=== PATIENT | female | born 1980 | race Caucasian/White ===

== ENCOUNTER → 2016-06-19 | Outpatient (CLI) | payer OTHER ==
[~2016-06-19] MED LIST: ASPCH81X PO; BCPILLS PO; CETI10TA10 PO; ESOM20CA PO
== END | disposition home or self-care (01) ==
LOC: C.PAPS 09:47
PROVIDERS: ATTEND Obstetrics & Gynecology
DX: Z01.419 Encounter for gynecological examination (general) (routine) without abnormal findings (principal)

== ENCOUNTER 2019-03-25 05:58 | Observation (INO) ==
--- NOTE | 2019-03-18 13:40 | Anesthesiology Consultation ---
Date of Service March 18, 2019 Assessment & Plan (1) Encounter for pre-operative examination: Chart Review Chart Review: Acceptable Risk for Surgery and Patient NOT seen in Pre Admission Testing Consults Requested none History Surgery Operation Date: 03/25/19 07:30 Proposed Procedures p Bilateral Reduction Mammoplasty - Lucille Bueno MD Height/Weight Height: 5 ft 6 in Weight: 79.379 kg Allergies Allergy/AdvReac Type Severity Reaction Status Date / Time No Known Drug Allergies Allergy Unknown . Verified 03/17/19 15:41 Medications Home Medications Medication Instructions Recorded Confirmed Last Taken aspirin 81 mg tablet,delayed 81 mg PO . HOLD 12/18/18 03/17/19 Unknown release cetirizine 10 mg capsule 10 mg PO QAM 12/18/18 03/17/19 Unknown esomeprazole magnesium 20 mg 20 mg PO QAM cap 12/18/18 03/17/19 Unknown capsule,delayed release levonorgestrel 0.15 mg-ethinyl 1 tab PO .HOLD 12/18/18 03/17/19 Unknown estradiol 30 mcg tablets,3 mos pack(91) sumatriptan 100 mg tablet 100 mg PO Q2H PRN 12/18/18 03/17/19 Unknown cyclobenzaprine 5 mg tablet 5 mg PO TID PRN #20 tab 02/09/19 03/17/19 Unknown oxycodone-acetaminophen 5 mg-325 1 tab PO Q4H PRN 3 Days #18 tab 03/11/19 03/17/19 Unknown mg tablet Past Medical History Medical History GERD (gastroesophageal reflux disease) Migraine Past Surgical History Surgical History Hx of esophagogastroduodenoscopy Hx of wisdom tooth extraction Social History Smoking Status: Never smoker Do You Dip or Chew Tobacco: No Hx Alcohol Use: No Hx Substance Use: No substance use type: does not use Testing Laboratory Results Laboratory Tests 03/13/19 03/13/19 03/13/19 12:01 12:01 12:01 WBC 7.96 Hgb 15.0 Hct 44.8 Plt Count 206 PT 10.2 INR 1.0 APTT 25.2 Sodium 139 Potassium 3.8 Chloride 105 Carbon Dioxide 27 BUN 10 Creatinine 0.65 Glucose 84
[2019-03-25] MEDS ORDERED: LR 15ML/HR IV SCH (06:00)
[2019-03-25] MEDS ORDERED: CEFAZOLIN 2000MG 2,000 MG/15 ML SYR IV SCH (06:00)
[2019-03-25] MEDS ORDERED: MIDAZOLAM HCL 1 MG/ML 2ML VIAL ONE (06:48)
[2019-03-25] MEDS ORDERED: DEXAMETHASONE SOD INJ 4 MG/ML VIAL ONE (06:48)
[2019-03-25] MEDS ORDERED: fentaNYL citrate 100 MCG/2 ML VIAL ONE ×2 (06:48→11:06)
[2019-03-25] MEDS ORDERED: PROPOFOL IV EMULSION 10 MG/ML 20 ML VIAL IV ONE (06:48)
[2019-03-25] MEDS ORDERED: LIDOCAINE HCL 2% 2 ML VIAL/AMP(20MG/ML) INFIL ONE (06:48)
[2019-03-25] MEDS ORDERED: HYDROmorphone INJ 2 MG/ML SYR/VIAL ONE (06:48)
[2019-03-25] MEDS ORDERED: ONDANSETRON INJ 2 MG/ML 2 ML VIAL ONE (06:48)
--- NOTE | 2019-03-25 07:01 | History & Physical Bridge Note ---
Date of Service March 25, 2019 History & Physical Bridge Note I have examined the patient, reviewed the History & Physical and in the interval since the performance of the History & Physical I have noted the following changes of clinical significance: no changes noted Final size discussed. Desires C, would prefer to err on size of larger breasts.
[2019-03-25] MEDS ORDERED: BUPIVACAINE 0.25% 30 ML VIAL ONE (07:02)
[2019-03-25] MEDS ORDERED: LIDOCAINE/EPINEPHRINE 1% 20 ML VIAL ONE (07:02)
[2019-03-25] MEDS ORDERED: LIDOCAINE HCL 1% 20 ML VIAL ONE ×2 (07:02→07:11)
[2019-03-25] MEDS ORDERED: ACETAMINOPHEN 1000 MG/100 ML IV IV ONE (07:03)
[2019-03-25] MEDS ORDERED: EpINEphrine HCL INJ 1 MG/ML 1ML SYRINGE ONE (07:03)
[2019-03-25] MEDS ORDERED: ONDANSETRON INJ 2 MG/ML 2 ML VIAL IV PRN ×2 (07:06→11:30)
[2019-03-25] MEDS ORDERED: PROMETHAZINE HCL 6.25 MG in SODIUM CHLORIDE 0.9% 50 ML IV PRN (07:06)
[2019-03-25] MEDS ORDERED: fentaNYL citrate 100 MCG/2 ML VIAL IV PRN (07:06)
[2019-03-25] MEDS ORDERED: KETOROLAC 30 MG/ML VIAL IV PRN (07:06)
[2019-03-25] MEDS ORDERED: ATROPINE SULFATE 0.1 MG/ML 10ML SYR IV PRN (07:06)
--- NOTE | 2019-03-25 11:15 | Post Operative Brief Note ---
Immediate Post Op Note v1 Date of Surgery March 25, 2019 Pre & Post Diagnosis Operation Date: 03/25/19 07:30 Pre-Op Diagnosis: Symptomatic Macromastia I identified the patient and participated in the time-out.: Yes Procedure Operation Date: 03/25/19 07:30 Actual Procedures p Bilateral Reduction Mammoplasty(Bilateral) - Lucille Bueno MD Surgeon Lucille Bueno MD Software Licensing Specialist Temitope De La Torre PA-C Estimated Blood Loss 50 Findings Consistent with Post-Op Diagnosis Drains Geoff-Dyer Drain (x2, 15fr, 100cc bulb drain inserted to right and left lateral breast)
--- NOTE | 2019-03-25 11:17 | Operative Report ---
PG Post Operative Report Pre & Post Diagnosis Operation Date: 03/25/19 07:30 Pre-Op Diagnosis: Symptomatic Macromastia I identified the patient and participated in the time-out.: Yes Procedure Operation Date: 03/25/19 07:30 Actual Procedures p Bilateral Reduction Mammoplasty(Bilateral) - Lucille Bueno MD Surgeon Lucille Bueno MD Linotype Worker Temitope De La Torre PA-C Estimated Blood Loss 50 Findings Consistent with Post-Op Diagnosis Specimens left breast tissue 631 grams right breast tissue 632 grams Drains JPx2 Anesthesia Type General Complications none Disposition Disposition: Recovery Room Indications back, neck and shoulder pain due to macromastia Description of Procedure The risks, benefits, and alternatives of the procedure were explained to the patient who agreed and signed consent. She was identified and marked in the preoperative holding area. She was brought to the operating room where she was positioned supine and placed under general anesthesia without incident. Surgical site was prepped and draped sterilely. A time-out procedure was performed. I began with the left side. Markings were reassessed and a 7 cm pedicle was ma rked. 1% lidocaine with epinephrine was used to anesthetize the planned incisions. A 42 mm cookie cutter was used to circumscribe the nipple-areolar complex. The previously marked 7 cm pedicle was incised using a 15 blade scalpel and deepithelialized. I began with the medial dissection of the pedicle using electrocautery. Cautery was used to incise through dermis and breast parenchyma down to the chest wall, taking care not to undermine the pedicle during dissection. A similar procedure was undertaken on the lateral aspect of the pedicle again taking care not to undermine. Lastly, the pedicle was dissected out superiorly using electrocautery and this was carried down to the chest wall as well. I then began with excision of the medial breast tissue followed by lateral aspect of the breast tissue and surrounding keyhole incision. A 15 blade scalpel was used to make the inframammary fold incision and electrocautery was used to deepen the incision through dermis and breast parench yma. Dissection was then carried superiorly to the level of the superior incision. Superior incision was then incised using a 15 blade scalpel and again dissected using electrocautery. This was undertaken laterally and then around the keyhole portion of the incision. Care was taken to leave some fat on the lateral pectoralis fascia in order to protect the T4 intercostal nerve. Hemostasis was achieved with electrocautery. The specimen was passed off in its entirety for weighing. Additional resection was undertaken from the superior flap in order to facilitate closure of the breast and to provide the best shape. The total resection weight of the left breast was 631 grams. The wound was irrigated with saline and hemostasis was achieved with electrocautery. 0.25% Marcaine plain was used to anesthetize the incisions as well as the pectoralis fascia. A 15 Portuguese Leroy drain was brought out through a separate stab incision. The nipple-areolar complex was brought into the keyhole using 2-0 Vicryl deep dermal suture. The wound was closed first in a lateral to mid breast direction and then medial to mid breast direction using 2-0 Vicryl deep dermal sutures. Vertical limb was also approximated using 2-0 Vicryl deep dermals and the nipple-areolar complex was inset using 2-0 Vicryl deep dermal sutures. Next, the superficial dermal layer was closed using 2-0 PDO running Quill suture along the inframammary fold and 3-0 PDS interrupted dermal sutures along the vertical limb and nipple- areolar complex. Lastly 3-0 Monocryl running subcuticular suture was placed. A similar procedure was undertaken on the right side with maximal excision weight of 632 grams. Breasts were symmetric and nipple-areolar complexes were viable bilaterally following wound closure. Dermabond Prineo was applied along the inframammary fold and vertical limb and Dermabond was placed around the nipple-areolar complex. Dry dressings and a surgical bra were placed. The patient was awakened and transferred to recovery room in satisfactory condition. Temitope De La Torre PA-C was present and scrubbed throughout the procedure and was instrumental in providing retraction during dissection of the pedicle and assisting in wound closure. I attest to the content of the Intraoperative Record and any orders documented therein. Any exceptions are noted below.
[2019-03-25] MEDS ORDERED: DiphenhydrAMINE HCL 50 MG/ML VIAL IV PRN (11:30)
[2019-03-25] MEDS ORDERED: ACETAMINOPHEN 325 MG TAB PO PRN (11:30)
[2019-03-25] MEDS ORDERED: PROMETHAZINE HCL 12.5 MG in SODIUM CHLORIDE 0.9% 50 ML IV PRN (11:30)
[2019-03-25] MEDS ORDERED: OXYCODONE/ACETAMINOPHEN 5mg/325mg TAB PO PRN ×3 (11:30→12:45)
[2019-03-25] MEDS ORDERED: MoRPHine SULFATE 4 MG/ML 1 ML CARP\\VIAL IV PRN ×2 (11:30→12:52)
[2019-03-25] MEDS ORDERED: MoRPHine SULFATE 2 MG/ML CARP IV PRN (11:30)
[2019-03-25] MEDS ORDERED: OXAZEPAM 10 MG CAPSULE PO PRN (11:30)
[2019-03-25] MEDS ORDERED: LABETALOL HCL IV 5 MG/ML 20ML IV ONE (12:20)
[2019-03-25] MEDS ORDERED: SUMAtriptan succinate 100 MG TAB PO PRN (12:45)
[2019-03-25] MEDS ORDERED: CYCLOBENZAPRINE HCL 5 MG TAB PO PRN (12:45)
--- NOTE | 2019-03-25 12:45 | Anesthesiology Progress Note ---
Date of Service March 25, 2019 Anesthesia Post Procedure Vital Signs Vital Signs: Temp Pulse Pulse Resp BP Pulse Ox 03/25/19 12:30 37.1 C 801 H 14 127/100 94 03/25/19 12:20 37.1 C 89 11 L 152/93 H 95 03/25/19 12:10 37.1 C 74 12 145/88 H 95 03/25/19 12:00 36.0 C L 77 13 147/99 H 99 03/25/19 11:50 36.0 C L 90 13 143/104 H 99 03/25/19 11:40 36.0 C L 65 12 153/98 H 100 03/25/19 11:31 36.0 C L 87 16 163/106 H 100 03/25/19 06:26 36.9 C 83 16 117/88 98 Transfer of Care Handoff Completed per policy Notes Mental Status: alert / awake / arousable Patient Amnestic to Procedure: Yes Nausea / Vomiting: adequately controlled Pain: adequately controlled Airway Patency, RR, SpO2: stable & adequate BP & HR: stable & adequate Hydration State: stable & adequate Anesthetic Complications: no major complications apparent
[2019-03-25] MEDS: D5W AND 1/2NSS + 20MEQ KCL 20 MEQ/1,000 ML BAG IV SCH (14:20)
[2019-03-25] MEDS: CEFAZOLIN 2000MG 2,000 MG/15 ML SYR IV SCH (16:09)
[2019-03-26] MEDS: CEFAZOLIN 2000MG 2,000 MG/15 ML SYR IV SCH (00:18)
[2019-03-26] MEDS: D5W AND 1/2NSS + 20MEQ KCL 20 MEQ/1,000 ML BAG IV SCH (03:17)
--- NOTE | 2019-03-26 08:19 | Surgery Progress Note ---
Date of Service March 26, 2019 Assessment & Plan (1) Macromastia: s/p bilateral breast reduction. POD#1. drains removed. patient d/c home today with f/u in office tomorrow. post-op instructions reviewed with the patient. Subjective Patient resting comfortably. Offers no concerns. She is tolerating regular diet and has excellent pain control. Physical Exam Constitutional: WD/WN, vitals as above no acute distress Skin: + incision (CDI, no evidence of infection. nipples perfusing) Results & Data Vital Signs (Past 12 Hours) Vital Signs Temp Pulse Resp BP Pulse Ox 03/26/19 08:02 36.8 C 90 16 123/86 98 03/26/19 03:05 36.8 C 86 16 119/79 96 03/25/19 23:00 36.8 C 93 H 16 133/85 96 PG Care Time/CCT Total # of Minutes Spent Total Time Spent with Patient: Total time spent is greater than 50% in coordination of care (as documented) at patient's floor/unit and/or counseling patient:
--- NOTE | 2019-03-26 08:31 | Anesthesiology Progress Note ---
Date of Service March 26, 2019 Anesthesia Post Procedure Vital Signs Vital Signs: Temp Pulse Pulse Resp BP BP Pulse Ox 03/26/19 08:02 36.8 C 90 16 123/86 98 03/26/19 03:05 36.8 C 86 16 119/79 96 03/25/19 23:00 36.8 C 93 H 16 133/85 96 03/25/19 19:00 36.7 C 87 17 133/85 95 03/25/19 17:01 36.7 C 94 H 17 153/90 H 98 03/25/19 15:09 36.5 C 83 16 124/84 96 03/25/19 14:00 94 H 16 135/88 98 03/25/19 13:51 79 16 133/86 98 03/25/19 13:00 36.9 C 84 16 130/85 97 03/25/19 12:40 37.1 C 78 19 130/89 99 03/25/19 12:30 37.1 C 801 H 14 127/100 94 03/25/19 12:20 37.1 C 89 11 L 152/93 H 95 03/25/19 12:10 37.1 C 74 12 145/88 H 95 03/25/19 12:00 36.0 C L 77 13 147/99 H 99 03/25/19 11:50 36.0 C L 90 13 143/104 H 99 03/25/19 11:40 36.0 C L 65 12 153/98 H 100 03/25/19 11:31 36.0 C L 87 16 163/106 H 100 Pain Intensity Bilateral Breast: Pain Intensity: 2 Notes Mental Status: alert / awake / arousable and participated in evaluation Patient Amnestic to Procedure: Yes Nausea / Vomiting: adequately controlled Pain: adequately controlled Airway Patency, RR, SpO2: stable & adequate BP & HR: stable & adequate Hydration State: stable & adequate Anesthetic Complications: no major complications apparent and Pt Satisfied with anesthetic care
[2019-03-26] MEDS ORDERED: PANTOprazole 40 MG TAB PO SCH (09:00)
[2019-03-26] MEDS ORDERED: CETIRIZINE HCL 10 MG TABLET PO SCH (09:00)
[2019-03-26] MEDS ORDERED: MULTIVITAMIN TAB PO SCH (09:00)
--- NOTE | 2019-03-26 11:24 | Discharge Summary ---
Date of Service March 26, 2019 Admission HPI Per Admitting Provider see admission H&P Admission Exam Per Admitting Provider see admission H&P Principal Diagnosis symptomatic macromastia, s/p bilateral breast reduction Discharge Exam Constitutional WD/WN, vitals as above no acute distress Skin + incision (CDI, no evidence of infection. nipples perfusing) Discharge Data Allergies Allergy/AdvReac Type Severity Reaction Status Date / Time No Known Drug Allergies Allergy Unknown . Verified 03/25/19 06:19 Procedures Performed Operation Date: 03/25/19 07:30 Actual Procedures p Bilateral Reduction Mammoplasty(Bilateral) - Lucille Bueno MD Hospital Course (1) Macromastia: Patient presented to [facility] with history of symptomatic macromastia. She was taken to the OR and underwent bilateral breast reduction. There were no intraoperative complications. She was taken to recovery and transferred to med/surg for observation. On POD#1, she was feeling well. She was tolerating a regular diet and ambulating. On exam, her vitals were stable. Her incisions were CDI and nipples viable. Her drains were removed. She was discharged home with instructions to follow-up in the office in one day. Total Time Total Time Spent Total Time Spent (In Minutes): 15 Total Time Includes: Examination of the Patient, Discharge Planning and Medication Reconciliation Discharge Plan Discharge Items Patient Disposition: Home - Self-Care Reason For Visit: Symptomatic Macromastia Discharge Diagnosis: s/p bilateral breast reduction Activity: As commented below Non-emergency contact: Surgeon Call non-emergency contact if: you have any medication questions, your pain is not controlled, you have a fever, your wound has increased redness and your wound has increased drainage Follow-up/Referrals: Doroteo Cancino MD [Primary Care Provider] - Temitope De La Torre PA-C [Physician Business Development Engineer] - Diet: Regular Addtl Attending Provider Instructions: ACTIVITY RECOMMENDATIONS: __Normal activities _x_No bending, lifting or straining __No driving _x_Driving allowed when you are off pain medications and you feel safe to drive without pain _x_Walking permitted __You should have help at home for ___ days DRESSINGS: __No dressings required _x_Keep dressings dry/in place until first office visit __Remove dressings ___ and leave dressings off __Apply ice ___ days __Remove dressings and reapply garment __Apply antibiotic ointment (Bacitracin, Neosporin, etc) to wounds 3-4 times/day for 10 days BATHING: x_Keep dressings dry _x_Sponge bathing permitted __Showering permitted _x_No swimming, hot tubs or soaking in a tub MEDICATIONS: Resume previous medications unless instructed otherwise by your surgeon. _x_Do not use aspirin, Motrin, Advil or Ibuprofen as these may promote bleeding. Please use Tylenol. _x_Prescription(s) provided: pain medication was sent to your pharmacy. OK to resume Aspirin on Saturday if no concerns of bleeding/worsening bruising. OK to resume control when active and walking OTHER INSTRUCTIONS: __Record drain output 2-3 times per day SPECIAL CARE INSTRUCTIONS: * It is normal to have a mild fever after surgery. If your temperature is higher than 101.5 degrees F, please call the office at [phone]. * Constipation is a typical side effect of pain medication. An [id number] stool softener will help relieve this. * Leaking around surgical drains may occur and should not cause concern. Sometimes these drains become clogged. If this happens, remove the bulb and milk the clot out of the tube, then replace the bulb. * Drainage from wounds after liposuction is normal and should be expected. Garments will become soiled. You should protect furniture and bedding. This drainage should mostly subside within 2-3 days. Leave garments in place unless instructed to remove them. * If you have unusual drainage from a wound or are concerned you have an infection or have any questions or concerns, please call the office at [phone]. FOLLOW UP VISIT: If not already scheduled, please call the office, , when you return home after surgery to schedule an appointment to be seen in _1__ days. Pending Studies at Discharge: Yes Studies:: pathology Stand-Alone Forms: [facility], Smoking Cessation Medications and DC Order Prescriptions: Continued cyclobenzaprine 5 mg tablet 5 mg PO TID PRN (Reason: muscle spasm) Qty: 20 RF: 0 esomeprazole magnesium [Nexium] 20 mg capsule,delayed release(DR/EC) 20 mg PO QAM RF: 0 Zyrtec 10 mg capsule 10 mg PO QAM RF: 0 sumatriptan succinate 100 mg tablet 100 mg PO Q2H PRN (Reason: MIGRAINES) RF: 0 oxycodone-acetaminophen [Endocet] 5-325 mg tablet 1 tab PO Q4H PRN (Reason: pain) 3 Days Qty: 18 RF: 0 Discontinued levonorgestrel-ethinyl estrad 0.15 mg-30 mcg (91) tablets,dose pack,3 month 1 tab PO DAILY RF: 0 aspirin [Adult Aspirin Regimen] 81 mg tablet,delayed release (DR/EC) 81 mg PO DAILY RF: 0 Discharge Orders: Discharge Order (Routine); Ordered 03/26/19 Ordered By: Temitope De La Torre Admission Data Admit Date/Time: 03/25/19 11:30 Attending Provider: Lucille Bueno Admit Provider: Lucille Bueno Primary Care Provider: Doroteo Cancino V. Other Interventions: Discharge Summary Assessment (RN) Last Done: 03/26/19 08:53 DC Date/Time DO NOT enter until pt leaves facility: 03/26/19 09:16
== END 2019-03-26 09:16 | disposition home or self-care (01) ==
LOC: 3W 05:58 → ASU 05:58